=== PATIENT | female | born 1940 | race Caucasian/White ===

== ENCOUNTER → 2018-09-23 | Outpatient (CLI) | payer OTHER, BC ==
[~2018-09-23] MED LIST: IOPAMIDOL (ISOVUE-300) 100 ML BTL ONE
== END ==
LOC: FIMAGING 10:49
PROVIDERS: ATTEND Radiology Diagnostic Radiology
DX: M54.6 Pain in thoracic spine (principal); K59.00 Constipation, unspecified
CPT/HCPCS: 74177; Q9967; 82565-PO